=== PATIENT | male | born 1990 | race Caucasian/White ===

== ENCOUNTER 2017-02-22 13:59 | Emergency (ER) | payer OTHER ==
[~2017-02-22] VITALS: Ht 170.2 cm; Wt 74.8 kg
== END 2017-02-22 15:38 | disposition home or self-care (01) ==
LOC: ED 13:59
DX: A63.0 Anogenital (venereal) warts (principal); F41.9 Anxiety disorder, unspecified; F17.200 Nicotine dependence, unspecified, uncomplicated
CPT/HCPCS: 99282

== ENCOUNTER 2017-05-05 05:35 | Day surgery (SDC) | payer OTHER ==
[~2017-05-05] VITALS: Ht 170.2 cm; Wt 79.4 kg
--- NOTE | 2017-05-05 08:11 | NUR ---
05/05/17 0810 Kristina Holliday 0806-PATIENT ARRIVED TO PACU ON 10L MASK O2 SAT 100% NONAROUSABLE. ORAL AIRWAY IN PLACE. MESH UNDERWEAR IN PLACE.
--- NOTE | 2017-05-05 08:54 | NUR ---
LE 0845 PT RETURNED FROM PACU WITH NO C/O'S. WATER GIVEN. MOM AT BEDSIDE.
--- NOTE | 2017-05-05 10:18 | OR ---
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 PROCEDURE: Excision of perianal condyloma. ESTIMATED BLOOD LOSS: None. INDICATIONS: Samuel is a 26-year-old gentleman, who has been moved up from [place] to be with his mom and stepfather. He is single and has no children. 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 He was having trouble with blood intermittently on his stool. He can feel skin lesions on the both sides of his anus. He had been to his primary care provider. He was asked to see me for his perianal condylomas, a local general surgeon. In the office, we could easily see the condyloma at the 3 and 9 o'clock positions. He had a few small condyloma between the anus and the base of the scrotum in the midline. I had explained to Samuel the nature of condyloma and the relationship to human papilloma virus. He said he has already been online reading and has made himself very aware of that. I also explained this simply too much to excise in the office we would have to do it under a saddle block over at the hospital. He also understands they have a high propensity to recur. He had expressed understanding and wished to proceed. PROCEDURE NOTE: Samuel was taken into our operating room and given a saddle block by our nurse aeronautical research engineer. He was then rotated into the prone aguilar-knife position with appropriate padding and monitoring on the OR table. He was then given some IV sedation per nurse aeronautical research engineer. He was given preoperative antibiotics along with subcutaneous heparin. SCDs were utilized. He was then prepped and draped in the usual sterile fashion. After this, with our appropriate mask and our suction and our cautery as well as additional suction, we examined his anal canal and followup past the dentate line. Of course, the HPV does not extend above the dentate line. We went ahead and injected local anesthetic underneath all the condyloma and then we excised carefully with the help of our cautery. After this, the dry ABD was placed along with some underwear. Samuel was then rotated into the supine position on his hospital bed and taken into recovery room in stable condition. Electronically Signed By: MAGDIEL CHANG MD 05/05/17 1018 PATIENT NAME: SAMUEL SHULTZ TATUM OPERATIVE REPORT DATE OF : [birth year] PHYSICIAN: MAGDIEL CHANG MD REPORT #: [id number] REPORT IS CONFIDENTIAL AND NOT TO BE RELEASED WITHOUT AUTHORIZATION [address] [address] Signed MD LEROY Mena/ZOEL /[id number] Electronically Signed By: MAGDIEL CHANG MD 05/05/17 1018 PATIENT NAME: SAMUEL SHULTZ JUDSON OPERATIVE REPORT DATE OF : [birth year] PHYSICIAN: MAGDIEL CHANG MD REPORT #: [id number] REPORT IS CONFIDENTIAL AND NOT TO BE RELEASED WITHOUT AUTHORIZATION
[2017-05-05] MEDS ORDERED: BALNEOL CLEANSI89 ML TOP (10:33)
[2017-05-05] MEDS ORDERED: NORCO 5-325 TA1 EACH PO (10:33)
--- NOTE | 2017-05-05 11:03 | NUR ---
LE 1020 PT STOOD AT SIDE OF BED WITH 2 PERSON ASSIST WITHOUT ANY PROBLEMS. PT GETTING DRESSED. 1O40 DC INSTRUCTIONS GIVEN TO PT/MOTHER. LEFT VIA W/C.
--- NOTE | 2017-05-05 14:23 | NUR ---
PT REATING IN BED, ALERT, ORIENTED AND SUPPORTED BY HIS MOM. HE SEEMED PREPARED, FEW QUESTIONS-PT REQUESTED PRAYER. WILL CONTINUE TO FOLLOW
== END 2017-05-05 10:40 | disposition home or self-care (01) ==
LOC: DS 05:35
PROVIDERS: Colon & Rectal Surgery
PROC: 0DBQ0ZX Excision of Anus, Open Approach, Diagnostic (ICD-10-PCS; principal; 2017-05-05 06:45)
DX: A63.0 Anogenital (venereal) warts (principal); F41.0 Panic disorder [episodic paroxysmal anxiety]; F17.210 Nicotine dependence, cigarettes, uncomplicated
CPT/HCPCS: 00902; J0330; J0694; J1100; J1644; J1885; J2250; J2405; J2704; J2765; J3010; J7120

== ENCOUNTER 2019-09-25 16:47 | Emergency (ER) | payer OTHER ==
[~2019-09-25] VITALS: Ht 170.2 cm; Wt 79.4 kg
[~2019-09-25 16:47] MED LIST: BALNEOL CLEANSI89 ML TOP; NORCO 5-325 TA1 EACH PO
--- OUTSIDE RECORDS SUMMARY | 2019-09-25 16:50 | XMS ---
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 Nohelia has no Care Guidelines for this patient. Wallace VISIT COUNT (12 MO.) 1 CINTHIA Srinivasan TOTAL 1 NOTE: Visits indicate total known visits. ED/C VISIT TRACKING (12 MO.) 09/25/2019 16:47 CINTHIA Cortez OR TYPE: Emergency COMPLAINT: - PANIC ATTACK INPATIENT VISIT TRACKING (12 MO.) No inpatient visits to display in this time frame [email or web address]
--- NOTE | 2019-09-25 21:41 | EKG ---
[facility] [address] [facility] [place], [place] [address] Signed Sinus rhythm with marked sinus arrhythmia Nonspecific intraventricular conduction delay Borderline ECG No previous ECGs available Confirmed by CANDICE STANLEY MD ([id number]) on 09/25/2019 9:41:15 PM Electronically Signed By: CANDICE STANLEY MD 09/25/192140 PATIENT NAME: SAMUEL SHULTZ Electrocardiogram DATE OF : 89 PHYSICIAN: CANDICE STANLEY MD REPORT #: [id number] REPORT IS CONFIDENTIAL AND NOT TO BE RELEASED WITHOUT AUTHORIZATION
== END 2019-09-25 17:30 | disposition home or self-care (01) ==
LOC: ED 16:47
DX: F41.0 Panic disorder [episodic paroxysmal anxiety] (principal); F17.200 Nicotine dependence, unspecified, uncomplicated
CPT/HCPCS: 93005; 93010; 99283-25

== ENCOUNTER 2019-10-08 07:47 | Emergency (ER) | payer OTHER ==
[~2019-10-08] VITALS: Ht 170.2 cm; Wt 79.4 kg
--- OUTSIDE RECORDS SUMMARY | 2019-10-08 07:50 | XMS ---
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 EYong VISIT COUNT (12 MO.) 2 [facility] TOTAL 2 NOTE: Visits indicate total known visits. ED/C VISIT TRACKING (12 MO.) 10/08/2019 07:48 CINTHIA Cortez OR TYPE: Emergency COMPLAINT: - PANIC ATTACK 09/25/2019 16:47 CINTHIA Cortez OR TYPE: Emergency COMPLAINT: - PANIC ATTACK DIAGNOSES: - Nicotine dependence, unspecified, uncomplicated - Anxiety disorder, unspecified - Panic disorder [episodic paroxysmal anxiety] INPATIENT VISIT TRACKING (12 MO.) No inpatient visits to display in this time frame [email or web address]
--- NOTE | 2019-10-08 20:45 | EKG ---
[facility] [address] [facility] [place] [address] Signed Normal sinus rhythm with sinus arrhythmia Cannot rule out Anterior infarct , age undetermined Abnormal ECG Confirmed by CANDICE STANLEY MD ([id number]) on 10/08/2019 8:45:23 PM Electronically Signed By: CANDICE STANLEY MD 10/08/195 PATIENT NAME: SAMUEL SHULTZ Electrocardiogram DATE OF : 89 PHYSICIAN: CANDICE STANLEY MD REPORT #: [id number] REPORT IS CONFIDENTIAL AND NOT TO BE RELEASED WITHOUT AUTHORIZATION
== END 2019-10-08 10:22 | disposition home or self-care (01) ==
LOC: ED 07:47
DX: F41.9 Anxiety disorder, unspecified (principal); F10.10 Alcohol abuse, uncomplicated; F14.90 Cocaine use, unspecified, uncomplicated; F17.200 Nicotine dependence, unspecified, uncomplicated
CPT/HCPCS: 80053; 84484; 85025; 93005; 93010; 99283-25